=== PATIENT | female | born 1945 | race Caucasian/White ===

== ENCOUNTER 2019-04-06 09:14 | Inpatient (IN) | payer MEDICARE, OTHER ==
[~2019-04-06] VITALS: Ht 149.9 cm; Wt 70.5 kg
[~2019-04-06 09:14] MED LIST: DEXAMETHASONE 4 MG/ML, 1ML ONE; KETOROLAC 30 MG/1 ML ONE; ONDANSETRON 2MG/ML, 2ML ONE; PROPOFOL 10 MG/ML, 20ML ONE
[2019-04-06] MEDS ORDERED: SODIUM CHLORIDE FLUSH 10ML SYR IVF ONE (10:00)
--- NOTE | 2019-04-06 10:00 | NUR ---
PT TO XRAY VIA [facility]
[2019-04-06 10:05] LABS: BASOPHILS # (AUTO) 0.03 x10^3/uL (0-0.1); BASOPHILS % (AUTO) 0 % (0-1); EOSINOPHILS # (AUTO) 0.16 x10^3/uL (0-0.4); EOSINOPHILS % (AUTO) 1 % (1-7); LYMPHOCYTES % (AUTO) 13 % (22-44); MD NO; MEAN CORPUSCULAR HEMOGLOBIN 31.3 pg (27.0-34.8); MEAN CORPUSCULAR HGB CONC 33.9 g/dL (32.4-35.8); MEAN CORPUSCULAR VOLUME 92.5 fL (80-100); MEAN PLATELET VOLUME 8.3 fL (7.4-10.4); MONOCYTES # (AUTO) 0.52 x10^3/uL (0.2-0.8); MONOCYTES % (AUTO) 4 % (2-9); NEUTROPHILS # (AUTO) 9.69 x10^3/uL (1.8-6.8); NEUTROPHILS % (AUTO) 81 % (42-75); PLATELET COUNT 197 x10^3/uL (130-400); RED BLOOD COUNT 3.38 x10^6/uL (3.82-5.3)
[2019-04-06] MEDS ORDERED: topiramate PO (10:05)
[2019-04-06] MEDS ORDERED: latanoprost EACHEYE (10:05)
[2019-04-06] MEDS ORDERED: myrbetriq PO (10:05)
[2019-04-06] MEDS ORDERED: tolterodine PO (10:05)
[2019-04-06] MEDS ORDERED: pravastatin PO (10:05)
[2019-04-06] MEDS ORDERED: plavix PO (10:05)
[2019-04-06] MEDS ORDERED: duloxetine PO (10:05)
[2019-04-06] MEDS ORDERED: proair (10:05)
[2019-04-06] MEDS ORDERED: zolpidem PO (10:05)
[2019-04-06 10:16] LABS: ANION GAP 7 mmol/L (5-15); CALCIUM 8.2 mg/dL (8.5-10.1); CHLORIDE 116 mmol/L (98-107); CREATININE 0.94 mg/dL (0.55-1.02)
[2019-04-06 10:17] LABS: ALBUMIN 3.2 g/dL (3.4-5.0)
--- NOTE | 2019-04-06 10:20 | NUR ---
RETURNED FROM XRAY. LYING FLAT, SPEAKING WITH ROOMMATE
[2019-04-06] MEDS ORDERED: SODIUM CHLORIDE 0.9% 1,000 ML IV ONE ×2 (10:29→11:06)
[2019-04-06] MEDS ORDERED: MORPHINE SULFATE 4 MG/ML, 1ML ONE (11:21)
[2019-04-06] MEDS ORDERED: ONDANSETRON 2MG/ML, 2ML ONE (11:21)
[2019-04-06] MEDS: MORPHINE SULFATE 4 MG/ML, 1ML IVPush PRN ×2 (11:27→11:42)
[2019-04-06] MEDS ORDERED: ONDANSETRON 2MG/ML, 2ML IVPush PRN ×2 (11:30→12:30)
[2019-04-06] MEDS ORDERED: MORPHINE SULFATE 4 MG/ML, 1ML IVPush PRN (11:30)
--- NOTE | 2019-04-06 11:40 | NUR ---
ERYTHEMA AND SWELLING AT IV SITE. IV DC'D. TO ATTEMPT ULTRASOUND GUIDED IV ACCESS.
--- NOTE | 2019-04-06 11:42 | NUR ---
MEDICATED FOR RIGHT HIP PAIN. ROOM MATE AT BEDSIDE AND WAS ABLE TO GET AHOLD OF DAUGHTER.
[2019-04-06] MEDS ORDERED: ONDANSETRON 2MG/ML, 2ML IVPush ONE (12:00)
[2019-04-06] MEDS ORDERED: SODIUM CHLORIDE FLUSH 10ML SYR IVF PRN (12:00)
--- NOTE | 2019-04-06 12:13 | NUR ---
TECH ATTEMPTING TO ESTABLISH IV VIA ULTRASOUND.
--- NOTE | 2019-04-06 12:29 | NUR ---
AFTER REPORT GIVEN TO DOUGLAS VIDAL, PT TRANSFERED TO FLOOR
[2019-04-06] MEDS ORDERED: ACETAMINOPHEN 325 MG TABLET PO PRN (12:30)
[2019-04-06] MEDS ORDERED: hydrALAzine 20 MG/ML, 1ML IVPush PRN (12:30)
[2019-04-06] MEDS ORDERED: GUAIFENESIN/DM 200-20MG, 10ML UDC PO PRN (12:30)
[2019-04-06] MEDS ORDERED: DOCUSATE 100 MG CAPSULE PO PRN (12:30)
[2019-04-06] MEDS ORDERED: ONDANSETRON ODT 4 MG PO PRN (12:30)
[2019-04-06 13:24] VITALS: BP 104/58
[2019-04-06] MEDS ORDERED: FOLI-17 PO (14:24)
[2019-04-06] MEDS ORDERED: FLU VACC QS2019-20 36MOS UP/PF 0.5 ML IM-VACC ONE (15:00)
[2019-04-06] MEDS: morphine SULFATE 10 MG/ML, 1ML IVPush PRN (15:39)
[2019-04-06] MEDS ORDERED: DEXTROSE 4 GM TAB.CHEW PO PRN (16:00)
[2019-04-06] MEDS ORDERED: DEXTROSE 50%, 50ML SYRINGE IVPush PRN (16:00)
[2019-04-06] MEDS ORDERED: GLUCAGON 1 MG IM PRN (16:00)
[2019-04-06] MEDS: INSULIN LISPRO 100 UNITS/ML, PEN SQ-INSULIN SCH ×2 (16:46→21:00)
[2019-04-06] MEDS ORDERED: FENTANYL PF 100 MCG/2ML ONE (17:56)
[2019-04-06] MEDS ORDERED: CEFAZOLIN 1,000 MG ONE ×2 (18:20→18:29)
[2019-04-06] MEDS ORDERED: SODIUM CHLORIDE 0.9% PF 10ML ONE (18:29)
[2019-04-06] MEDS ORDERED: PHENYLEPHRINE 10 MG/ML ONE (18:31)
[2019-04-06] MEDS ORDERED: EPHEDRINE 50 MG/ML, 1ML ONE (19:51)
[2019-04-06] MEDS ORDERED: OXYcodone 5 MG/5 ML ORAL.SOL UDC ONE (19:51)
[2019-04-06] MEDS ORDERED: MEPERIDINE/PF 25MG/ML,1ML IVPush PRN (20:00)
[2019-04-06] MEDS ORDERED: FENTANYL PF 100 MCG/2ML IV PRN (20:00)
[2019-04-06] MEDS ORDERED: PROMETHAZINE 25 MG/ML, 1ML IV PRN (20:00)
[2019-04-06] MEDS ORDERED: EPHEDRINE 50 MG/ML, 1ML IVPush PRN (20:00)
[2019-04-06] MEDS ORDERED: hydrALAzine 20 MG/ML, 1ML IV PRN (20:00)
[2019-04-06] MEDS ORDERED: LABETALOL 5MG/ML, 20ML IV PRN (20:00)
[2019-04-06] MEDS ORDERED: HYDROcodone/APAP 7.5-325MG/15ML UDC PO PRN (20:00)
[2019-04-06] MEDS ORDERED: ONDANSETRON 2MG/ML, 2ML IV PRN ×2 (20:00→23:00)
[2019-04-06] MEDS ORDERED: HYDROmorphone 2 MG/ML, 1ML IVPush PRN ×2 (20:00→22:30)
[2019-04-06] MEDS ORDERED: OXYcodone 5 MG/5 ML ORAL.SOL UDC PO PRN (20:30)
[2019-04-06] MEDS ORDERED: HYDROCORTISONE 100 MG INJ. ONE (20:51)
[2019-04-06] MEDS ORDERED: SODIUM CHLORIDE FLUSH 10ML SYR IVF SCH (21:00)
[2019-04-06] MEDS ORDERED: HYDROCORTISONE 100 MG INJ. IVPush ONE (21:00)
[2019-04-06] MEDS ORDERED: ALBUMIN HUMAN 5% 500 ML IV ONE (21:00)
[2019-04-06] MEDS: KETOROLAC 30 MG/1 ML IV SCH (23:18)
[2019-04-06] MEDS: TOLTERODINE 2MG TABLET PO SCH (23:18)
[2019-04-06] MEDS: CLINDAMYCIN PMX 600MG/50ML 50 ML IVPB SCH (23:18)
[2019-04-06] MEDS: HYDROcodone/APAP 7.5-325MG/15ML UDC PO PRN (23:19)
[2019-04-07] VITALS (16 sets, daily range): BP systolic 67–107; BP diastolic 43–62
[2019-04-07] MEDS: HYDROcodone/APAP 7.5-325MG/15ML UDC PO PRN ×2 (04:07→21:02)
[2019-04-07 04:30] LABS: MICROSCOPIC AUTO
[2019-04-07 04:37] LABS: CULTURE INDICATED? YES
[2019-04-07 06:07] LABS: MEAN CORPUSCULAR HEMOGLOBIN 31.2 pg (27.0-34.8); MEAN CORPUSCULAR HGB CONC 33.4 g/dL (32.4-35.8); MEAN CORPUSCULAR VOLUME 93.2 fL (80-100); MEAN PLATELET VOLUME 8.3 fL (7.4-10.4); PLATELET COUNT 160 x10^3/uL (130-400); RED BLOOD COUNT 2.13 x10^6/uL (3.82-5.3)
[2019-04-07 06:14] LABS: ANION GAP 9 mmol/L (5-15); CALCIUM 8.1 mg/dL (8.5-10.1); CHLORIDE 113 mmol/L (98-107)
[2019-04-07 06:17] LABS: CREATININE 1.33 mg/dL (0.55-1.02)
[2019-04-07] MEDS: CLINDAMYCIN PMX 600MG/50ML 50 ML IVPB SCH (06:29)
[2019-04-07 06:39] LABS: BASOPHILS # (AUTO) 0.01 x10^3/uL (0-0.1); BASOPHILS % (AUTO) 0 % (0-1); EOSINOPHILS % (AUTO) 0 % (1-7); LYMPHOCYTES % (AUTO) 9 % (22-44); MD MORPH REVIEW ONLY; MONOCYTES # (AUTO) 0.61 x10^3/uL (0.2-0.8); MONOCYTES % (AUTO) 8 % (2-9); NEUTROPHILS # (AUTO) 6.57 x10^3/uL (1.8-6.8); NEUTROPHILS % (AUTO) 83 % (42-75)
[2019-04-07 06:41] LABS: ANISOCYTOSIS 1+; OVALOCYTES 1+; POLYCHROMASIA 1+
[2019-04-07 06:42] LABS: <PLATELET ESTIMATE> ADEQUATE; <PLT MORPHOLOGY> NORMAL PLT MORPH
[2019-04-07] MEDS: INSULIN LISPRO 100 UNITS/ML, PEN SQ-INSULIN SCH ×4 (07:17→21:03)
[2019-04-07] MEDS: KETOROLAC 30 MG/1 ML IV SCH (07:33)
[2019-04-07] MEDS ORDERED: BACLOFEN 10 MG TABLET PO PRN (08:00)
[2019-04-07] MEDS: LATANOPROST OPHTH 0.005%, 2.5ML EACHEYE SCH ×2 (08:12→19:52)
[2019-04-07] MEDS: TOLTERODINE 2MG TABLET PO SCH ×2 (08:12→19:32)
[2019-04-07] MEDS: TOPIRAMATE 100 MG TABLET PO SCH (08:12)
[2019-04-07] MEDS: DULOXETINE 30 MG CAPSULE.DR PO SCH (08:12)
[2019-04-07] MEDS: DOCUSATE 100 MG CAPSULE PO SCH ×2 (08:12→19:32)
[2019-04-07] MEDS: FOLIC ACID 1 MG TABLET PO SCH (08:12)
[2019-04-07] MEDS: MYRBETRIQ 50 MG HOMEMEDPO SCH (08:14)
[2019-04-07] MEDS: PRAVASTATIN 40 MG TABLET PO SCH ×2 (08:17→19:32)
[2019-04-07] MEDS: SODIUM CHLORIDE FLUSH 10ML SYR IVF SCH ×2 (08:17→19:33)
[2019-04-07] MEDS ORDERED: PLAVIX 75 MG PO SCH (09:00)
[2019-04-07] MEDS ORDERED: SODIUM CHLORIDE 0.9% 1,000 ML IV SCH (09:00)
[2019-04-07] MEDS ORDERED: SODIUM CHLORIDE 0.9%, 500ML IVBOLUS ONE ×2 (14:30→18:30)
[2019-04-07] MEDS: BACLOFEN 10 MG TABLET PO PRN (19:30)
[2019-04-07] MEDS: morphine SULFATE 10 MG/ML, 1ML IVPush PRN (22:35)
[2019-04-08 01:18] VITALS: BP 98/58
[2019-04-08 05:45] LABS: CHLORIDE 116 mmol/L (98-107)
[2019-04-08 05:50] LABS: ANION GAP 3 mmol/L (5-15); BASOPHILS # (AUTO) 0.01 x10^3/uL (0-0.1); BASOPHILS % (AUTO) 0 % (0-1); CALCIUM 7.8 mg/dL (8.5-10.1); CREATININE 1.07 mg/dL (0.55-1.02); EOSINOPHILS # (AUTO) 0.15 x10^3/uL (0-0.4); EOSINOPHILS % (AUTO) 3 % (1-7); LYMPHOCYTES % (AUTO) 34 % (22-44); MD NO; MEAN CORPUSCULAR HEMOGLOBIN 31.8 pg (27.0-34.8); MEAN CORPUSCULAR HGB CONC 33.9 g/dL (32.4-35.8); MEAN PLATELET VOLUME 8.8 fL (7.4-10.4); MONOCYTES % (AUTO) 9 % (2-9); NEUTROPHILS # (AUTO) 2.89 x10^3/uL (1.8-6.8); NEUTROPHILS % (AUTO) 54 % (42-75); PLATELET COUNT 111 x10^3/uL (130-400); RED BLOOD COUNT 2.56 x10^6/uL (3.82-5.3); RED CELL DISTRIBUTION WIDTH 15.5 % (9.6-15.2)
[2019-04-08 07:34] VITALS: BP 96/60
[2019-04-08] MEDS: INSULIN LISPRO 100 UNITS/ML, PEN SQ-INSULIN SCH ×4 (07:35→21:33)
[2019-04-08] MEDS: TOLTERODINE 2MG TABLET PO SCH ×2 (08:17→21:31)
[2019-04-08] MEDS: DULOXETINE 30 MG CAPSULE.DR PO SCH (08:18)
[2019-04-08] MEDS: FOLIC ACID 1 MG TABLET PO SCH (08:18)
[2019-04-08] MEDS: DOCUSATE 100 MG CAPSULE PO SCH ×2 (08:18→21:30)
[2019-04-08] MEDS: SODIUM CHLORIDE FLUSH 10ML SYR IVF SCH ×2 (08:19→21:00)
[2019-04-08] MEDS: MYRBETRIQ 50 MG HOMEMEDPO SCH (08:19)
[2019-04-08] MEDS: TOPIRAMATE 100 MG TABLET PO SCH (08:19)
[2019-04-08] MEDS: OXYcodone/APAP 5/325MG TABLET PO PRN ×3 (10:10→21:32)
[2019-04-08] MEDS: SODIUM CHLORIDE 0.9% 1,000 ML IV SCH ×2 (12:59→22:30)
[2019-04-08 13:40] VITALS: BP 92/49
[2019-04-08 19:16] VITALS: BP 96/58
[2019-04-08] MEDS: LATANOPROST OPHTH 0.005%, 2.5ML EACHEYE SCH (21:13)
[2019-04-08] MEDS: PRAVASTATIN 40 MG TABLET PO SCH (21:31)
[2019-04-08] MEDS: BACLOFEN 10 MG TABLET PO PRN (23:27)
[2019-04-09] VITALS (10 sets, daily range): BP systolic 91–120; BP diastolic 41–77
[2019-04-09] MEDS: OXYcodone/APAP 5/325MG TABLET PO PRN (01:36)
[2019-04-09 05:06] LABS: ANION GAP 3 mmol/L (5-15); CHLORIDE 116 mmol/L (98-107); CREATININE 0.79 mg/dL (0.55-1.02)
[2019-04-09 05:11] LABS: MEAN CORPUSCULAR HEMOGLOBIN 31.5 pg (27.0-34.8); MEAN CORPUSCULAR HGB CONC 33.3 g/dL (32.4-35.8); MEAN CORPUSCULAR VOLUME 94.4 fL (80-100); MEAN PLATELET VOLUME 8.5 fL (7.4-10.4); PLATELET COUNT 108 x10^3/uL (130-400); RED BLOOD COUNT 2.31 x10^6/uL (3.82-5.3); RED CELL DISTRIBUTION WIDTH 15.8 % (9.6-15.2)
[2019-04-09] MEDS: SODIUM CHLORIDE 0.9% 1,000 ML IV SCH (05:35)
[2019-04-09 05:47] LABS: BASOPHILS # (AUTO) 0.01 x10^3/uL (0-0.1); BASOPHILS % (AUTO) 0 % (0-1); EOSINOPHILS # (AUTO) 0.17 x10^3/uL (0-0.4); EOSINOPHILS % (AUTO) 3 % (1-7); LYMPHOCYTES # (AUTO) 1.76 x10^3/uL (1-3.4); LYMPHOCYTES % (AUTO) 35 % (22-44); MD SCAN; MONOCYTES # (AUTO) 0.43 x10^3/uL (0.2-0.8); MONOCYTES % (AUTO) 9 % (2-9); NEUTROPHILS # (AUTO) 2.66 x10^3/uL (1.8-6.8); NEUTROPHILS % (AUTO) 53 % (42-75)
[2019-04-09] MEDS: INSULIN LISPRO 100 UNITS/ML, PEN SQ-INSULIN SCH ×4 (07:58→20:21)
[2019-04-09] MEDS: MYRBETRIQ 50 MG HOMEMEDPO SCH (09:00)
[2019-04-09] MEDS: SODIUM CHLORIDE FLUSH 10ML SYR IVF SCH ×2 (09:00→20:28)
[2019-04-09] MEDS: DULOXETINE 30 MG CAPSULE.DR PO SCH (09:38)
[2019-04-09] MEDS: TOLTERODINE 2MG TABLET PO SCH ×2 (09:39→20:18)
[2019-04-09] MEDS: FOLIC ACID 1 MG TABLET PO SCH (09:39)
[2019-04-09] MEDS: DOCUSATE 100 MG CAPSULE PO SCH ×2 (09:39→21:00)
[2019-04-09] MEDS: TOPIRAMATE 100 MG TABLET PO SCH (09:39)
[2019-04-09] MEDS: HYDROcodone/APAP 7.5-325MG/15ML UDC PO PRN ×2 (14:33→18:30)
[2019-04-09] MEDS: LATANOPROST OPHTH 0.005%, 2.5ML EACHEYE SCH (20:19)
[2019-04-09] MEDS: PRAVASTATIN 40 MG TABLET PO SCH (22:11)
[2019-04-09] MEDS: ZOLPIDEM 10MG TABLET PO PRN (22:11)
[2019-04-09] MEDS: BACLOFEN 10 MG TABLET PO PRN (22:14)
[2019-04-10 01:16] VITALS: BP 139/83
[2019-04-10] MEDS: HYDROcodone/APAP 7.5-325MG/15ML UDC PO PRN ×3 (03:28→19:33)
[2019-04-10] MEDS: INSULIN LISPRO 100 UNITS/ML, PEN SQ-INSULIN SCH ×4 (07:39→20:40)
[2019-04-10] MEDS: SODIUM CHLORIDE FLUSH 10ML SYR IVF SCH (09:00)
[2019-04-10] MEDS: MYRBETRIQ 50 MG HOMEMEDPO SCH (09:00)
[2019-04-10 09:06] VITALS: BP 109/69
[2019-04-10] MEDS: DULOXETINE 30 MG CAPSULE.DR PO SCH (09:08)
[2019-04-10] MEDS: TOLTERODINE 2MG TABLET PO SCH ×2 (09:08→20:39)
[2019-04-10] MEDS: FOLIC ACID 1 MG TABLET PO SCH (09:08)
[2019-04-10] MEDS: DOCUSATE 100 MG CAPSULE PO SCH ×2 (09:08→20:39)
[2019-04-10] MEDS: TOPIRAMATE 100 MG TABLET PO SCH (09:08)
[2019-04-10] MEDS ORDERED: MECLIZINE 12.5 MG TABLET PO PRN ×2 (13:00→13:30)
[2019-04-10] MEDS: POLYETHYLENE GLYCOL 17 GM PACKET PO PRN (13:17)
[2019-04-10] MEDS ORDERED: MAGNESIUM HYDROXIDE 8%, 30ML UDC PO PRN (13:30)
[2019-04-10 13:32] VITALS: BP 124/78
[2019-04-10] MEDS: CEPHALEXIN 500 MG CAPSULE PO SCH ×2 (16:12→20:39)
[2019-04-10 19:23] VITALS: BP 121/74
[2019-04-10] MEDS: PRAVASTATIN 40 MG TABLET PO SCH (20:39)
[2019-04-10] MEDS: LATANOPROST OPHTH 0.005%, 2.5ML EACHEYE SCH (20:42)
[2019-04-11] MEDS: ZOLPIDEM 10MG TABLET PO PRN (00:30)
[2019-04-11] MEDS: SODIUM CHLORIDE FLUSH 10ML SYR IVF SCH ×3 (01:12→21:58)
[2019-04-11] MEDS ORDERED: DIPHENHYDRAMINE 25 MG CAPSULE PO PRN (02:30)
[2019-04-11 03:06] VITALS: BP 107/59
[2019-04-11] MEDS: HYDROcodone/APAP 7.5-325MG/15ML UDC PO PRN ×4 (03:33→21:56)
[2019-04-11 05:30] LABS: ANION GAP 6 mmol/L (5-15); CALCIUM 8.3 mg/dL (8.5-10.1); CHLORIDE 113 mmol/L (98-107); CREATININE 0.74 mg/dL (0.55-1.02)
[2019-04-11 05:36] LABS: BASOPHILS # (AUTO) 0.01 x10^3/uL (0-0.1); BASOPHILS % (AUTO) 0 % (0-1); EOSINOPHILS # (AUTO) 0.16 x10^3/uL (0-0.4); EOSINOPHILS % (AUTO) 4 % (1-7); LYMPHOCYTES # (AUTO) 1.43 x10^3/uL (1-3.4); LYMPHOCYTES % (AUTO) 34 % (22-44); MD NO; MEAN CORPUSCULAR HEMOGLOBIN 31.2 pg (27.0-34.8); MEAN CORPUSCULAR HGB CONC 33.5 g/dL (32.4-35.8); MEAN CORPUSCULAR VOLUME 93.2 fL (80-100); MONOCYTES % (AUTO) 10 % (2-9); NEUTROPHILS # (AUTO) 2.19 x10^3/uL (1.8-6.8); NEUTROPHILS % (AUTO) 52 % (42-75); PLATELET COUNT 144 x10^3/uL (130-400); RED BLOOD COUNT 2.66 x10^6/uL (3.82-5.3); RED CELL DISTRIBUTION WIDTH 15.1 % (9.6-15.2)
[2019-04-11] MEDS: CEPHALEXIN 500 MG CAPSULE PO SCH ×4 (06:25→21:55)
[2019-04-11 07:16] VITALS: BP 104/45
[2019-04-11] MEDS: INSULIN LISPRO 100 UNITS/ML, PEN SQ-INSULIN SCH ×4 (08:10→21:00)
[2019-04-11] MEDS: POLYETHYLENE GLYCOL 17 GM PACKET PO PRN (08:10)
[2019-04-11] MEDS: DOCUSATE 100 MG CAPSULE PO SCH ×2 (08:12→21:00)
[2019-04-11] MEDS: DULOXETINE 30 MG CAPSULE.DR PO SCH (08:12)
[2019-04-11] MEDS: TOLTERODINE 2MG TABLET PO SCH ×2 (08:12→22:00)
[2019-04-11] MEDS: TOPIRAMATE 100 MG TABLET PO SCH (08:12)
[2019-04-11] MEDS: FOLIC ACID 1 MG TABLET PO SCH (08:12)
[2019-04-11] MEDS: MYRBETRIQ 50 MG HOMEMEDPO SCH (09:00)
[2019-04-11] MEDS ORDERED: CLOPIDOGREL 75 MG TABLET PO SCH (09:00)
[2019-04-11] MEDS ORDERED: BISACODYL 10 MG SUPP ONE (11:31)
[2019-04-11] MEDS ORDERED: BISACODYL 10 MG SUPP PR PRN (12:00)
[2019-04-11 12:37] VITALS: BP 115/71
[2019-04-11] MEDS ORDERED: LORazepam 2 MG/ML, 1ML IVPush ONE (15:00)
[2019-04-11] MEDS ORDERED: GADOTERATE 7.5 MMOL/15 ML SYR ONE (16:03)
[2019-04-11] MEDS ORDERED: HEPARIN wt. based STROKE protocol MC PRN (18:30)
[2019-04-11] MEDS ORDERED: DO NOT GIVE XX PRN (18:30)
[2019-04-11 19:10] VITALS: BP 109/69
[2019-04-11] MEDS: PRAVASTATIN 40 MG TABLET PO SCH (21:55)
[2019-04-11] MEDS: HEPARIN 25,000 UNITS/500ML PMX 500 ML IV PRN (21:57)
[2019-04-11] MEDS: LATANOPROST OPHTH 0.005%, 2.5ML EACHEYE SCH (21:57)
[2019-04-12 01:05] LABS: OCCULT BLOOD POSITIVE (NEGATIVE)
[2019-04-12 01:06] VITALS: BP 103/65
[2019-04-12] MEDS: HYDROcodone/APAP 7.5-325MG/15ML UDC PO PRN ×4 (02:21→23:51)
[2019-04-12 04:38] LABS: BASOPHILS # (AUTO) 0.02 x10^3/uL (0-0.1); BASOPHILS % (AUTO) 0 % (0-1); EOSINOPHILS # (AUTO) 0.18 x10^3/uL (0-0.4); EOSINOPHILS % (AUTO) 4 % (1-7); LYMPHOCYTES # (AUTO) 1.27 x10^3/uL (1-3.4); LYMPHOCYTES % (AUTO) 27 % (22-44); MD NO; MEAN CORPUSCULAR HEMOGLOBIN 32.1 pg (27.0-34.8); MEAN CORPUSCULAR VOLUME 94.2 fL (80-100); MONOCYTES # (AUTO) 0.41 x10^3/uL (0.2-0.8); MONOCYTES % (AUTO) 9 % (2-9); NEUTROPHILS % (AUTO) 61 % (42-75); PLATELET COUNT 182 x10^3/uL (130-400); RED BLOOD COUNT 2.74 x10^6/uL (3.82-5.3); RED CELL DISTRIBUTION WIDTH 15.3 % (9.6-15.2)
[2019-04-12 04:47] LABS: ANION GAP 6 mmol/L (5-15); CALCIUM 8.7 mg/dL (8.5-10.1); CHLORIDE 111 mmol/L (98-107); CREATININE 0.89 mg/dL (0.55-1.02)
[2019-04-12] MEDS: CEPHALEXIN 500 MG CAPSULE PO SCH ×4 (04:48→20:16)
[2019-04-12 07:26] VITALS: BP 111/69
[2019-04-12] MEDS: MYRBETRIQ 50 MG HOMEMEDPO SCH (07:36)
[2019-04-12] MEDS: DOCUSATE 100 MG CAPSULE PO SCH ×2 (07:37→20:16)
[2019-04-12] MEDS: TOLTERODINE 2MG TABLET PO SCH ×2 (08:27→20:14)
[2019-04-12] MEDS: INSULIN LISPRO 100 UNITS/ML, PEN SQ-INSULIN SCH ×4 (08:27→20:26)
[2019-04-12] MEDS: FOLIC ACID 1 MG TABLET PO SCH (08:27)
[2019-04-12] MEDS: SODIUM CHLORIDE FLUSH 10ML SYR IVF SCH ×2 (08:27→20:18)
[2019-04-12] MEDS: DULOXETINE 30 MG CAPSULE.DR PO SCH (08:27)
[2019-04-12] MEDS: TOPIRAMATE 100 MG TABLET PO SCH (08:28)
[2019-04-12 08:40] LABS: CHOL/HDL RATIO 5.2; LDL/HDL RATIO 2.7 (0.5-3.0)
[2019-04-12 12:42] VITALS: BP 105/67
[2019-04-12] MEDS ORDERED: LEVETIRACETAM 100 MG/ML, 5ML IV ONE (14:42)
[2019-04-12] MEDS ORDERED: LEVETIRACETAM 1,500 MG in SODIUM CHLORIDE 0.9% 100 ML IV ONE (15:00)
[2019-04-12] MEDS ORDERED: ACETAMINOPHEN 325 MG TABLET PO PRN (18:00)
[2019-04-12 19:38] VITALS: BP 127/75
[2019-04-12] MEDS: LEVETIRACETAM 500 MG TABLET PO SCH (20:15)
[2019-04-12] MEDS: PRAVASTATIN 40 MG TABLET PO SCH (20:16)
[2019-04-12] MEDS: LATANOPROST OPHTH 0.005%, 2.5ML EACHEYE SCH (20:16)
[2019-04-12] MEDS: BACLOFEN 10 MG TABLET PO PRN (20:26)
[2019-04-13] MEDS: HEPARIN 25,000 UNITS/500ML PMX 500 ML IV PRN ×2 (01:26→23:35)
[2019-04-13 01:28] VITALS: BP 104/68
[2019-04-13] MEDS: CEPHALEXIN 500 MG CAPSULE PO SCH ×4 (05:13→20:43)
[2019-04-13] MEDS: HYDROcodone/APAP 7.5-325MG/15ML UDC PO PRN ×3 (06:03→23:52)
[2019-04-13 06:41] VITALS: BP 93/64
[2019-04-13] MEDS ORDERED: IRON SUCROSE COMPLEX 100MG/5ML IV ONE (08:30)
[2019-04-13] MEDS: INSULIN LISPRO 100 UNITS/ML, PEN SQ-INSULIN SCH ×4 (08:40→21:12)
[2019-04-13] MEDS: LEVETIRACETAM 500 MG TABLET PO SCH ×2 (08:41→20:43)
[2019-04-13] MEDS: DULOXETINE 30 MG CAPSULE.DR PO SCH (08:41)
[2019-04-13] MEDS: TOLTERODINE 2MG TABLET PO SCH ×2 (08:42→20:43)
[2019-04-13] MEDS: FOLIC ACID 1 MG TABLET PO SCH (08:42)
[2019-04-13] MEDS: TOPIRAMATE 100 MG TABLET PO SCH (08:43)
[2019-04-13] MEDS: DOCUSATE 100 MG CAPSULE PO SCH ×2 (08:43→20:43)
[2019-04-13] MEDS: SODIUM CHLORIDE FLUSH 10ML SYR IVF SCH ×2 (08:44→20:43)
[2019-04-13] MEDS: MYRBETRIQ 50 MG HOMEMEDPO SCH (08:44)
[2019-04-13 09:15] LABS: BASOPHILS # (AUTO) 0.02 x10^3/uL (0-0.1); BASOPHILS % (AUTO) 0 % (0-1); EOSINOPHILS # (AUTO) 0.19 x10^3/uL (0-0.4); EOSINOPHILS % (AUTO) 4 % (1-7); LYMPHOCYTES # (AUTO) 1.66 x10^3/uL (1-3.4); LYMPHOCYTES % (AUTO) 38 % (22-44); MD NO; MEAN CORPUSCULAR HEMOGLOBIN 30.9 pg (27.0-34.8); MEAN CORPUSCULAR VOLUME 93.7 fL (80-100); MEAN PLATELET VOLUME 7.9 fL (7.4-10.4); MONOCYTES # (AUTO) 0.41 x10^3/uL (0.2-0.8); MONOCYTES % (AUTO) 9 % (2-9); NEUTROPHILS # (AUTO) 2.15 x10^3/uL (1.8-6.8); NEUTROPHILS % (AUTO) 49 % (42-75); PLATELET COUNT 212 x10^3/uL (130-400); RED BLOOD COUNT 2.86 x10^6/uL (3.82-5.3); RED CELL DISTRIBUTION WIDTH 14.9 % (9.6-15.2)
[2019-04-13 09:30] LABS: ALANINE AMINOTRANSFERASE 20 U/L (12-78); ALBUMIN 2.8 g/dL (3.4-5.0); ANION GAP 4 mmol/L (5-15); CALCIUM 8.5 mg/dL (8.5-10.1); CHLORIDE 110 mmol/L (98-107); CREATININE 0.83 mg/dL (0.55-1.02)
[2019-04-13 09:32] LABS: ALKALINE PHOSPHATASE 124 U/L (45-117); BILIRUBIN,TOTAL 1.2 mg/dL (0.2-1.0); TOTAL PROTEIN 6.1 g/dL (6.4-8.2)
--- NOTE | 2019-04-13 10:08 | NUR ---
REGULAR TEXTURE WITH THIN LIQUIDS, REPOSITION PT TO 90 DEGREES PRIOR TO ALL PO INTAKE, STUDENT ASSISTANCE COUNSELOR INFORMED RN AND PLACED SWALLOW PRECAUTION SIGN AT HOB Addendum: 04/13/19 at 1009 by Brenda OLMEDO Amended: Links added.
[2019-04-13] MEDS: BACLOFEN 10 MG TABLET PO PRN ×2 (11:34→11:35)
[2019-04-13] MEDS: LIDODERM 5% PATCH TD SCH (12:21)
[2019-04-13 12:39] VITALS: BP 104/64
[2019-04-13 20:25] VITALS: BP 110/72
[2019-04-13] MEDS: PRAVASTATIN 40 MG TABLET PO SCH (20:46)
[2019-04-13] MEDS: LATANOPROST OPHTH 0.005%, 2.5ML EACHEYE SCH (20:46)
[2019-04-14 01:12] VITALS: BP 98/62
[2019-04-14] MEDS: CEPHALEXIN 500 MG CAPSULE PO SCH ×4 (05:18→20:26)
[2019-04-14 06:46] VITALS: BP 100/62
[2019-04-14] MEDS: DOCUSATE 100 MG CAPSULE PO SCH ×2 (07:15→20:27)
[2019-04-14] MEDS: MYRBETRIQ 50 MG HOMEMEDPO SCH (07:15)
[2019-04-14 08:12] LABS: BASOPHILS # (AUTO) 0.02 x10^3/uL (0-0.1); BASOPHILS % (AUTO) 0 % (0-1); EOSINOPHILS # (AUTO) 0.25 x10^3/uL (0-0.4); EOSINOPHILS % (AUTO) 5 % (1-7); LYMPHOCYTES # (AUTO) 1.64 x10^3/uL (1-3.4); LYMPHOCYTES % (AUTO) 35 % (22-44); MD NO; MEAN CORPUSCULAR HEMOGLOBIN 30.7 pg (27.0-34.8); MEAN CORPUSCULAR HGB CONC 32.9 g/dL (32.4-35.8); MEAN CORPUSCULAR VOLUME 93.3 fL (80-100); MEAN PLATELET VOLUME 8.1 fL (7.4-10.4); MONOCYTES # (AUTO) 0.46 x10^3/uL (0.2-0.8); MONOCYTES % (AUTO) 10 % (2-9); NEUTROPHILS # (AUTO) 2.34 x10^3/uL (1.8-6.8); NEUTROPHILS % (AUTO) 50 % (42-75); PLATELET COUNT 235 x10^3/uL (130-400); RED BLOOD COUNT 2.63 x10^6/uL (3.82-5.3); RED CELL DISTRIBUTION WIDTH 15.2 % (9.6-15.2)
[2019-04-14 08:13] LABS: ALANINE AMINOTRANSFERASE 18 U/L (12-78); ALBUMIN 2.6 g/dL (3.4-5.0); ANION GAP 5 mmol/L (5-15); CALCIUM 8.5 mg/dL (8.5-10.1); CHLORIDE 110 mmol/L (98-107); CREATININE 0.83 mg/dL (0.55-1.02)
[2019-04-14 08:14] LABS: ALKALINE PHOSPHATASE 110 U/L (45-117); BILIRUBIN,TOTAL 0.8 mg/dL (0.2-1.0); TOTAL PROTEIN 5.9 g/dL (6.4-8.2)
[2019-04-14] MEDS: SODIUM CHLORIDE FLUSH 10ML SYR IVF SCH ×2 (08:27→20:27)
[2019-04-14] MEDS: TOLTERODINE 2MG TABLET PO SCH ×2 (08:27→20:26)
[2019-04-14] MEDS: DULOXETINE 30 MG CAPSULE.DR PO SCH (08:27)
[2019-04-14] MEDS: LEVETIRACETAM 500 MG TABLET PO SCH ×2 (08:27→20:26)
[2019-04-14] MEDS: TOPIRAMATE 100 MG TABLET PO SCH (08:27)
[2019-04-14] MEDS: INSULIN LISPRO 100 UNITS/ML, PEN SQ-INSULIN SCH ×4 (08:27→20:37)
[2019-04-14] MEDS: FOLIC ACID 1 MG TABLET PO SCH (08:27)
[2019-04-14] MEDS: APIXABAN 5 MG TABLET PO SCH ×2 (09:33→20:26)
[2019-04-14] MEDS: BACLOFEN 10 MG TABLET PO PRN (12:16)
[2019-04-14] MEDS: LIDODERM 5% PATCH TD SCH (12:16)
[2019-04-14 12:34] VITALS: BP 150/78
[2019-04-14] MEDS ORDERED: TRAM50TA2 PO (14:44)
[2019-04-14] MEDS ORDERED: APIX5TAB PO (14:44)
[2019-04-14] MEDS ORDERED: LEVE500T53 PO (14:44)
[2019-04-14] MEDS ORDERED: METH750T87 PO (14:44)
[2019-04-14] MEDS ORDERED: CEPH-376 PO (14:47)
[2019-04-14] MEDS: HYDROcodone/APAP 7.5-325MG/15ML UDC PO PRN (16:59)
[2019-04-14 19:52] VITALS: BP 105/63
[2019-04-14] MEDS: PRAVASTATIN 40 MG TABLET PO SCH (20:26)
[2019-04-14] MEDS: LATANOPROST OPHTH 0.005%, 2.5ML EACHEYE SCH (20:27)
== END 2019-04-14 20:54 | DRG 480 ==
LOC: ED 11:05 → EDIP 11:06 → ED 11:23 → 4NE 12:29 → 4EST 04-11 18:15
PROVIDERS: ADMIT Internal Medicine; ATTEND Hospitalist
PROC: 0QPB04Z Removal of Internal Fixation Device from Right Lower Femur, Open Approach (ICD-10-PCS; 2019-04-06)
PROC: 0QH606Z Insertion of Intramedullary Internal Fixation Device into Right Upper Femur, Open Approach (ICD-10-PCS; principal; 2019-04-06 18:30)
PROC: 30233N1 Transfusion of Nonautologous Red Blood Cells into Peripheral Vein, Percutaneous Approach (ICD-10-PCS; 2019-04-07)
DX: S72.141A Displaced intertrochanteric fracture of right femur, initial encounter for closed fracture (principal); N17.0 Acute kidney failure with tubular necrosis; I63.40 Cerebral infarction due to embolism of unspecified cerebral artery; J98.11 Atelectasis; D62 Acute posthemorrhagic anemia; N39.0 Urinary tract infection, site not specified; B96.1 Klebsiella pneumoniae [K. pneumoniae] as the cause of diseases classified elsewhere; B96.20 Unspecified Escherichia coli [E. coli] as the cause of diseases classified elsewhere; E11.9 Type 2 diabetes mellitus without complications; G40.909 Epilepsy, unspecified, not intractable, without status epilepticus; I35.8 Other nonrheumatic aortic valve disorders; I48.91 Unspecified atrial fibrillation; I95.1 Orthostatic hypotension; J45.909 Unspecified asthma, uncomplicated; K59.00 Constipation, unspecified; M19.90 Unspecified osteoarthritis, unspecified site; R29.6 Repeated falls; R32 Unspecified urinary incontinence; W01.0XXA Fall on same level from slipping, tripping and stumbling without subsequent striking against object, initial encounter; R26.9 Unspecified abnormalities of gait and mobility; R53.81 Other malaise; Z96.653 Presence of artificial knee joint, bilateral; Y92.009 Unspecified place in unspecified non-institutional (private) residence as the place of occurrence of the external cause; Z86.711 Personal history of pulmonary embolism; Z86.73 Personal history of transient ischemic attack (TIA), and cerebral infarction without residual deficits; Z88.6 Allergy status to analgesic agent; Z90.49 Acquired absence of other specified parts of digestive tract; Z90.710 Acquired absence of both cervix and uterus; Z88.0 Allergy status to penicillin; Z88.2 Allergy status to sulfonamides; Z91.030 Bee allergy status; Z82.3 Family history of stroke; Z23 Encounter for immunization
CPT/HCPCS: 36415; 36430; 70450; 70553; 71045; 72192; 74176; 76000; 80048; 80053; 80061; 81001; 82040; 82272; 82533; 82728; 82962; 83036; 83540; 83550; 83735; 84100; 84443; 84466; 85014; 85018; 85025; 85520; 86850; 86900; 86923; 87077; 87086; 87186; 90686; 93005; 93306; 93880; 96374; C1713; G0378; J0690; J1100; J1644; J1756; J1885; J1953; J2405; J2704; J3010; P9045; A9575; J1720; J1815; J2060; J2270; J2370; J7030; J7040; P9016; Q0163

== ENCOUNTER 2020-09-07 10:35 | Observation (INO) | payer MEDICARE, OTHER ==
[~2020-09-07] VITALS: Ht 147.3 cm; Wt 83.6 kg
[~2020-09-07 10:35] MED LIST changes: +APIX5TAB PO; +CEPH-376 PO; +CEPH750C9 PO; +CHOL10003 PO; -DEXAMETHASONE 4 MG/ML, 1ML ONE; +FOLI1TAB32 PO; +FURO20TA3 PO; +GABA300C PO; +INSU100I11 SQ; +INSU100V8 SQ; -KETOROLAC 30 MG/1 ML ONE; +LEVE500T53 PO; +MAGN300C PO; +METH750T87 PO; +OMEP40CA42 PO; -ONDANSETRON 2MG/ML, 2ML ONE; -PROPOFOL 10 MG/ML, 20ML ONE; +TIZA4CAP PO; +TOLT2TAB4 PO; +TRAM50TA2 PO; +ZALE10CA PO; +duloxetine PO; +latanoprost EACHEYE; +myrbetriq PO; +plavix PO; +pravastatin PO; +proair; +tolterodine PO; +topiramate PO; +zolpidem PO
[2020-09-07] MEDS ORDERED: MAGN500T PO (11:32)
[2020-09-07] MEDS ORDERED: CALC600T23 PO (11:32)
[2020-09-07] MEDS ORDERED: PRAV40TA2 PO (11:32)
[2020-09-07] MEDS ORDERED: MIRA50TA PO (11:32)
[2020-09-07] MEDS ORDERED: LATA2.5D4 EACHEYE (11:32)
[2020-09-07 11:36] VITALS: BP 125/79
[2020-09-07] MEDS ORDERED: FENTANYL PF 100 MCG/2ML ONE ×3 (11:55→15:18)
[2020-09-07] MEDS ORDERED: MIDAZOLAM 1 MG/ML, 2ML ONE (11:55)
[2020-09-07] MEDS ORDERED: LACTATED RINGERS 1,000 ML IV SCH (12:00)
[2020-09-07] MEDS ORDERED: CHLORHEXIDINE 15 ML UDC PO ONE (12:00)
[2020-09-07] MEDS ORDERED: LIDOCAINE-MPF 1%, 2ML ONE (12:07)
[2020-09-07] MEDS ORDERED: LIDOCAINE-MPF 1%, 2ML INFIL ONE (12:30)
[2020-09-07] MEDS ORDERED: ROCURONIUM 10 MG/ML,10ML ONE (13:01)
[2020-09-07] MEDS ORDERED: SUCCINYLCHOLINE 20 MG/ML, 10ML ONE (13:01)
[2020-09-07] MEDS ORDERED: FENTANYL PF 250 MCG/5ML ONE (13:33)
[2020-09-07] MEDS ORDERED: BUPIVACAINE/PF 0.25% ONE (13:34)
[2020-09-07] MEDS ORDERED: EPINEPHRINE 1 MG/ML, 1ML ONE (13:34)
[2020-09-07] MEDS ORDERED: PROMETHAZINE 25 MG/ML, 1ML IVPush PRN (14:00)
[2020-09-07] MEDS ORDERED: ACETAMINOPHEN 325 MG TABLET PO PRN ×2 (14:00→15:00)
[2020-09-07] MEDS ORDERED: ALBUTEROL SULFATE 2.5 MG/3 ML NPPB PRN (14:00)
[2020-09-07] MEDS ORDERED: hydrALAzine 20 MG/ML, 1ML IV PRN (14:00)
[2020-09-07] MEDS ORDERED: OXYcodone 5 MG/5 ML ORAL.SOL UDC PO PRN (14:00)
[2020-09-07] MEDS ORDERED: LABETALOL 5MG/ML, 20ML IV PRN (14:00)
[2020-09-07] MEDS ORDERED: MIDAZOLAM 1 MG/ML, 2ML IV PRN (14:00)
[2020-09-07] MEDS ORDERED: BUPIVACAINE/PF 0.5% ONE (14:16)
[2020-09-07] MEDS ORDERED: DEXAMETHASONE 4 MG/ML, 1ML ONE (14:16)
[2020-09-07] MEDS ORDERED: LIDOCAINE-MPF 2% ,5ML ONE (14:16)
[2020-09-07] MEDS ORDERED: ONDANSETRON 2MG/ML, 2ML ONE (14:16)
[2020-09-07] MEDS ORDERED: PROPOFOL 10 MG/ML, 20ML ONE (14:16)
[2020-09-07] MEDS ORDERED: EPHEDRINE 50 MG/ML, 1ML ONE (14:16)
[2020-09-07] MEDS ORDERED: CEFAZOLIN 1,000 MG ONE (14:16)
[2020-09-07] MEDS ORDERED: OXYcodone 5 MG/5 ML ORAL.SOL UDC ONE (14:44)
[2020-09-07] MEDS ORDERED: PROMETHAZINE 25 MG/ML, 1ML ONE (14:44)
[2020-09-07] MEDS: FENTANYL PF 100 MCG/2ML IV PRN ×4 (14:46→15:28)
[2020-09-07] MEDS ORDERED: morphine SULFATE 10 MG/ML, 1ML IVPush PRN (15:00)
[2020-09-07] MEDS ORDERED: PROMETHAZINE 25 MG/ML, 1ML IM PRN (15:00)
[2020-09-07] MEDS ORDERED: ONDANSETRON 2MG/ML, 2ML IVPush PRN (15:00)
[2020-09-07] MEDS ORDERED: HYDROmorphone 1 MG/ML, 1ML INJ ONE ×2 (15:03→15:29)
[2020-09-07] MEDS: HYDROmorphone 1 MG/ML, 1ML INJ IVPush PRN ×4 (15:10→15:41)
[2020-09-07] MEDS ORDERED: ACETAMINOPHEN 650 MG/20.3 ML UDC ONE (15:18)
[2020-09-07 16:30] VITALS: BP 119/75
[2020-09-07] MEDS ORDERED: BISACODYL 10 MG SUPP PR PRN (18:30)
[2020-09-07] MEDS ORDERED: POLYETHYLENE GLYCOL 17 GM PACKET PO PRN (18:30)
[2020-09-07] MEDS: INSULIN GLARGINE 100 UNITS/ML, PEN SQ-INSULIN SCH ×2 (18:30→21:23)
[2020-09-07] MEDS ORDERED: ONDANSETRON ODT 4 MG PO PRN (18:30)
[2020-09-07] MEDS: OXYcodone/APAP 5/325MG TABLET PO PRN (18:46)
[2020-09-07 18:59] VITALS: BP 114/66
[2020-09-07] MEDS ORDERED: TIZANIDINE 4MG TABLET PO SCH (21:00)
[2020-09-07] MEDS ORDERED: CALCIUM CARBONATE 500 MG TAB.CHEW PO SCH (21:00)
[2020-09-07] MEDS ORDERED: PRAVASTATIN 40 MG TABLET PO SCH (21:00)
[2020-09-07] MEDS ORDERED: MAGNESIUM OXIDE 400 MG TABLET PO SCH (21:00)
[2020-09-07] MEDS ORDERED: TEMPLATE NON-FORMULARY MED. (Zaleplon** 10 MG) PO SCH (21:00)
[2020-09-07] MEDS: LATANOPROST OPHTH 0.005%, 2.5ML EACHEYE SCH (21:00)
[2020-09-07] MEDS: INSULIN LISPRO 100 UNITS/ML, PEN SQ-INSULIN SCH (21:23)
[2020-09-07] MEDS: GABAPENTIN 300 MG CAPSULE PO SCH (21:24)
[2020-09-07] MEDS: TOLTERODINE 2MG TABLET PO SCH (21:24)
[2020-09-08 00:13] VITALS: BP 102/52
[2020-09-08] MEDS: OXYcodone/APAP 5/325MG TABLET PO PRN ×3 (02:18→17:05)
[2020-09-08 04:11] VITALS: BP 116/78
[2020-09-08 07:09] VITALS: BP 107/70
[2020-09-08] MEDS: GABAPENTIN 300 MG CAPSULE PO SCH ×2 (08:16→17:16)
[2020-09-08] MEDS: INSULIN LISPRO 100 UNITS/ML, PEN SQ-INSULIN SCH ×3 (08:17→16:00)
[2020-09-08] MEDS ORDERED: (Mirabegron** (Myrbetriq**) 50 MG) PO SCH (09:00)
[2020-09-08] MEDS ORDERED: OMEPRAZOLE 20 MG CAPSULE.DR PO SCH (09:00)
[2020-09-08] MEDS ORDERED: CHOLECALCIFEROL 1,000 UNIT TABLET PO SCH (09:00)
[2020-09-08] MEDS ORDERED: SENNA/DOCUSATE TABLET PO SCH (09:00)
[2020-09-08] MEDS: TOLTERODINE 2MG TABLET PO SCH (09:16)
[2020-09-08] MEDS: LATANOPROST OPHTH 0.005%, 2.5ML EACHEYE SCH (09:16)
[2020-09-08 12:32] VITALS: BP 108/70
[2020-09-08] MEDS ORDERED: OXYC1TAB14 PO ×2 (13:18→13:48)
[2020-09-08] MEDS ORDERED: ACET325T26 PO (13:18)
[2020-09-08 17:00] VITALS: BP 111/72
== END 2020-09-08 17:17 ==
LOC: INTOOBSV 10:35 → ORIP 10:35 → 4NE 16:29
PROVIDERS: ADMIT Orthopaedic Surgery; ATTEND Internal Medicine
DX: T84.498A Other mechanical complication of other internal orthopedic devices, implants and grafts, initial encounter (principal); Z20.822 Contact with and (suspected) exposure to COVID-19; M97.11XA Periprosthetic fracture around internal prosthetic right knee joint, initial encounter; E11.649 Type 2 diabetes mellitus with hypoglycemia without coma; D68.69 Other thrombophilia; G40.909 Epilepsy, unspecified, not intractable, without status epilepticus; J45.909 Unspecified asthma, uncomplicated; H54.61 Unqualified visual loss, right eye, normal vision left eye; H40.9 Unspecified glaucoma; I48.20 Chronic atrial fibrillation, unspecified; G93.41 Metabolic encephalopathy; R29.6 Repeated falls; K21.9 Gastro-esophageal reflux disease without esophagitis; E78.5 Hyperlipidemia, unspecified; Z87.891 Personal history of nicotine dependence; Z86.73 Personal history of transient ischemic attack (TIA), and cerebral infarction without residual deficits; Z47.2 Encounter for removal of internal fixation device; Z86.711 Personal history of pulmonary embolism; Z88.0 Allergy status to penicillin; Z79.4 Long term (current) use of insulin; Z66 Do not resuscitate; Z96.659 Presence of unspecified artificial knee joint; Z79.899 Other long term (current) drug therapy; Z87.440 Personal history of urinary (tract) infections
CPT/HCPCS: 20680; 27495; 73501; 82962; 87635; 93005; 97162; C1713; G0378; J0171; J0330; J0690; J1100; J1170; J1815; J2405; J2704; J3010; J3490; J7120; S0020; 76000; J2250